=== PATIENT | female | born 1995 | race Caucasian/White ===

== ENCOUNTER 2018-11-08 12:47 | Emergency (ER) | payer OTHER ==
[2018-11-08] MEDS: SOD CHLORIDE 0.9% 1,000 ML IV (14:46)
[2018-11-08] MEDS: DIPHENHYDRAMINE 50 MG INJ IV (15:40)
[2018-11-08] MEDS: METOCLOPRAMIDE 10 MG INJ IV (15:41)
[2018-11-08 16:31] LABS: LITHIUM < 0.4 mmol/L (0.6-1.3)
== END 2018-11-08 16:52 | disposition home or self-care (01) ==
LOC: FTE 12:47
DX: R51 Headache (principal)
CPT/HCPCS: 80178; 96374; 96375; 99284-25